=== PATIENT | male | born 1935 | race Caucasian/White ===

== ENCOUNTER 2016-12-23 09:00 | Emergency (ER) | payer MEDICARE, OTHER ==
[2016-12-23 09:03] VITALS: BMI 29.0
[2016-12-23 09:05] VITALS: TEMP 98.2
--- NOTE | 2016-12-23 09:15 | ED PDOC ---
HPI: General Adult Time Seen by Provider: 12/23/16 09:09 Chief Complaint (Provider): confusion History Per: Patient, Family History/Exam Limitations: no limitations Additional Complaint(s): 81yo male w/ Hx Parkinson's, CVA 01/2016comes in for complaint of confusion for 2 days. Patient complains of feeling tired. Patient has reportedly not slept in 2 days. 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 Patient usually goes to [place] however family states they do not like the care there. Taking [facility]: Sal PMD: Andrew Oshea Past Medical History Reviewed: Historical Data, Nursing Documentation, Vital Signs Vital Signs: Last Vital Signs Temp 98.2 F 12/23/16 09:02 Pulse 106 H 12/23/16 09:02 Resp 19 12/23/16 09:02 BP 167/86 H 12/23/16 09:02 Pulse Ox 98 12/23/16 11:58 - Medical History PMH: Asthma, CVA, Diabetes, HTN, Parkinson's Disease, End Stage Renal Disease, Chronic Kidney Disease - Surgical History Surgical History: No Surg Hx - Family History Family History: States: Unknown Family Hx - Immunization History Hx Tetanus Toxoid Vaccination: No Hx Influenza Vaccination: No Hx Pneumococcal Vaccination: No - Home Medications Home Medications: Ambulatory Orders Medication Instructions Recorded Atorvastatin [Lipitor] 10 mg PO DAILY 10/07/15 Cholecalciferol [Vitamin D 1000 IU] 50,000 unit PO QWK 10/07/15 Gabapentin 300 mg PO HS 10/07/15 Glimepiride 2 mg PO DAILY 10/07/15 Linagliptin [Tradjenta] 5 mg PO DAILY 10/07/15 Lisinopril 10 mg PO DAILY 10/07/15 Metformin HCl [Metformin HCl ER] 500 mg PO DAILY 10/07/15 Methscopolamine [place] 2.5 mg PO Q8H PRN 10/07/15 levETIRAcetam [Keppra] 1 tab PO TID 10/07/15 - Allergies Allergies/Adverse Reactions: Allergies Allergy/AdvReac Type Severity Reaction Status Date / Time No Known Allergies Allergy Verified 12/23/16 09:13 Review of Systems ROS Statement: Except As Marked, All Systems Reviewed And Found Negative Constitutional: Negative for: Fever Neurological: Positive for: Confusion Physical Exam - Reviewed Nursing Documentation Reviewed: Yes Vital Signs Reviewed: Yes - Physical Exam Appears: Positive for: Well, Non-toxic, No Acute Distress Head Exam: Positive for: ATRAUMATIC, NORMAL INSPECTION, NORMOCEPHALIC Skin: Positive for: Warm, Dry Eye Exam: Positive for: Other (Left eye opacified scelar on left eye, unable to see pupil. Right eye pupil reactive to light.) Cardiovascular/Chest: Positive for: Regular Rate, Rhythm Respiratory: Positive for: Normal Breath Sounds. Negative for: Rales, Rhonchi, Wheezing Gastrointestinal/Abdominal: Positive for: Normal Exam, Soft. Negative for: Tenderness Extremity: Positive for: Other (mild pitting edema bilateral lower extremities. ) Neurologic/Psych: Positive for: Alert, Oriented (x4). Negative for: Motor/ Sensory Deficits, Facial Droop - Laboratory Results Result Diagrams: 12/23/16 09:52 12/23/16 09:52 - ECG O2 Sat by Pulse Oximetry: 98 (RA) Pulse Ox Interpretation: Normal Medical Decision Making Medical Decision Makin accuchek 273. Impression: CVA, progression of Parkinson's, dementia, UTI, insomnia, acute on chronic renal failure Plan CT Head w/o EKG labs reassess 1144 CT Head w/o Impression Generalized atrophy. Nonspecific white matter changes. Disposition - Clinical Impression Clinical Impression: Dizziness, Parkinson disease - Patient ED Disposition Is Patient to be Admitted: No Doctor Will See Patient In The: Office Counseled Patient/Family Regarding: Studies Performed, Diagnosis, Need For Followup - Disposition Referrals: Rafaela Solis MD [Staff Provider] - Disposition: Routine/Home Disposition Time: 11:55 Condition: GOOD Additional Instructions: Follow up with your PCP and or neurologist in 2-3 days. Instructions: Parkinson Disease (ED), Dizziness (ED) Print Language: LUXEMBOURGER Additional Comments - Additional Comments Additional Comments: Scribe Attestation: Documented by Jamie Perrin acting as a scribe for Martha Dinero MD. Provider Scribe Attestation: All medical record entries made by the Scribe were at my direction and personally dictated by me. I have reviewed the chart and agree that the record accurately reflects my personal performance of the history, physical exam, medical decision making, and the department course for this patient. I have also personally directed, reviewed, and agree with the discharge instructions and disposition.
[2016-12-23 09:55] LABS: BASO # 0.1 K/uL (0.0-0.2); EOS # 0.1 K/uL (0.0-0.7); HEMATOCRIT 38.2 % (35.0-51.0); LYMPH # 1.5 K/uL (1.0-4.3); MEAN CELL VOLUME 92.4 fl (80.0-94.0); MEAN CORPUSCULAR HEMOGLOBIN 31.6 pg (27.0-31.0); MEAN CORPUSCULAR HGB CONC 34.2 g/dL (33.0-37.0); MEAN PLATELET VOLUME 8.4 fl (7.2-11.7); MONO # 0.5 K/uL (0.0-0.8); MONO % 8.3 % (0.0-10.0); NEUT # 4.3 K/uL (1.8-7.0); NEUT % 66.7 % (50.0-75.0); RED CELL DISTRIBUTION WIDTH 13.7 % (11.5-14.5); WHITE BLOOD COUNT 6.5 K/uL (4.8-10.8)
[2016-12-23 10:07] LABS: CALCIUM 9.7 mg/dL (8.4-10.2); POTASSIUM 4.1 MMOL/L (3.6-5.0)
[2016-12-23 10:19] LABS: TROPONIN I 0.018 ng/mL (0.00-0.120)
[2016-12-23] MEDS ORDERED: Sodium Chloride 0.9% 500 ML IV STA (10:23)
--- NOTE | 2016-12-23 10:58 | CT ---
PROCEDURE: CT HEAD WITHOUT CONTRAST. HISTORY: confusion COMPARISON: None available. TECHNIQUE: Axial computed tomography images were obtained through the head/brain without intravenous contrast. Radiation dose: Total exam DLP = 888.73 mGy-cm. This CT exam was performed using one or more of the following dose reduction techniques: Automated exposure control, adjustment of the mA and/or kV according to patient size, and/or use of iterative reconstruction technique. FINDINGS: HEMORRHAGE: No intracranial hemorrhage. BRAIN: Diffuse atrophy with prominence of the ventricles and sulci noted. No mass effect or edema. Intracranial atherosclerotic calcifications. Scattered periventricular and subcortical white matter hypodensities, which are nonspecific, but often seen with chronic microvascular ischemic disease. Please note that MRI with diffusion imaging is more sensitive in the detection of acute ischemic event. VENTRICLES: No hydrocephalus. CALVARIUM: Unremarkable. PARANASAL SINUSES: Unremarkable as visualized. No significant inflammatory changes. MASTOID AIR CELLS: Unremarkable as visualized. No inflammatory changes. 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 IMPRESSION: Generalized atrophy. Nonspecific white matter changes. Additional findings as above.
[2016-12-23 12:06] VITALS: BP 131/78; PULSE 82; RESP 18; O2SAT 99
--- NOTE | 2016-12-23 13:20 | CARD ---
APPROVED REPORT EKG Measurement Heart [id number] <Conclusion> Normal sinus rhythm Left axis deviation Abnormal ECG
== END 2016-12-23 12:06 | disposition home or self-care (01) ==
LOC: H.ER 09:00
DX: G20 Parkinson's disease (principal); R42 Dizziness and giddiness; F03.90 Unspecified dementia, unspecified severity, without behavioral disturbance, psychotic disturbance, mood disturbance, and anxiety; I12.0 Hypertensive chronic kidney disease with stage 5 chronic kidney disease or end stage renal disease; J45.909 Unspecified asthma, uncomplicated; Z86.73 Personal history of transient ischemic attack (TIA), and cerebral infarction without residual deficits; E11.9 Type 2 diabetes mellitus without complications
CPT/HCPCS: 70450; 80048; 82948; 84484; 85025; 93005; 96360; 99285; J7040